=== PATIENT | female | born 1960 | race Hispanic/Latino ===

== ENCOUNTER 2024-04-18 09:43 | Outpatient (CLI) | payer BC ==
[2024-04-18] MEDS ORDERED: Iopamidol 370 76% 100 ML VIAL ONE (14:04)
== END 2024-04-18 09:44 | disposition home or self-care (01) ==
LOC: CT 09:43
PROVIDERS: ATTEND Family Medicine
DX: R91.8 Other nonspecific abnormal finding of lung field (principal)
CPT/HCPCS: 71260; 82565; Q9967